=== PATIENT | female | born 2005 | race African-American/Black ===

== ENCOUNTER 2025-06-06 06:06 | Emergency (ER) | payer SELFPAY ==
[~2025-06-06] VITALS: Ht 162.6 cm; Wt 54.5 kg
[2025-06-06 06:17] VITALS: TEMP 97.5
[2025-06-06] MEDS ORDERED: LEVE-71 PO ×2 (06:25→08:33)
[2025-06-06 08:30] VITALS: BP 97/53; PULSE 74; RESP 14; O2SAT 98
== END 2025-06-06 08:54 | disposition home or self-care (01) ==
LOC: EMS 06:11
DX: G40.909 Epilepsy, unspecified, not intractable, without status epilepticus (principal); Z79.899 Other long term (current) drug therapy
CPT/HCPCS: 99283